=== PATIENT | male | born 1960 | race Caucasian/White ===

== ENCOUNTER 2017-06-30 14:14 | Emergency (ER) | payer OTHER ==
[2016-02-12 03:19] VITALS: BP 150/99
--- NOTE | 2017-06-30 14:18 | ED Physician Documentation ---
General Adult - HISTORIAN Historian: patient - HPI Stated Complaint: intoxicated Chief Complaint: Altered Mental Status Additional Information: alcohol ingestion Onset: hours Timing: still present Severity: moderate Modifying Factors: found intoxicated and disorderly Context: possibly fell off ladder, unwitnessed, only pt.'s wordand it changes Location: law enforcement states found in ditch - ROS CONST: no problems EYES/ENT: none CVS/RESP: none GI/: none MS/SKIN/LYMPH: none NEURO/PSYCH: other (intoxicated) - PAST HX Past History: other (unknown, uncopperative) Other History: other (unknown) Surgeries/Procedures: other (unknown, uncooperative) Immunizations: referred to PCP Allergies/Adverse Reactions: Allergies Allergy/AdvReac Type Severity Reaction Status Date / Time No Allergy Information Allergy Unverified 06/30/17 14:33 Available Home Medications: Ambulatory Orders Medication Instructions Recorded Unobtainable [Unobtainable] 06/30/17 - SOCIAL HX Smoking History: cigarettes Alcohol Use: heavy Drug Use: other (unknown) - FAMILY HX Family History: No - VITAL SIGNS Vital Signs: Vital Signs Temp Pulse Resp BP Pulse Ox 150/99 02/12/16 03:16 - REVIEWED ASSESSMENTS Nursing Assessment Reviewed: Yes Vitals Reviewed: Yes Progress - Results/Orders Results/Orders: no testing allowed by pt. - Progress Progress: no testing allowed by pt. Critical Care Note - Critical Care Note Total Time (mins): 0 ED Results Lab/Radiology - Lab Results Lab Results: pt. will not allow blood draw - Radiology Radiology Impressions: pt. will not allow radiographic testing General Adult Physical Exam - PHYSICAL EXAM GENERAL APPEARANCE: intoxicated, alert, belligerent, pt. will not allow me to touch him/examine him, walking, answers questions appropriately, abrasions on face, verbally abusive and threatening NEURO: oriented X3 Discharge Clincal Impression: Alcohol intoxication Qualifiers: Complication of substance-induced condition: uncomplicated Qualified Code(s): F10.920 - Alcohol use, unspecified with intoxication, uncomplicated Referrals: Primary Doctor,No [Primary Care Provider] - 2 Days Comments: Pt. discharged into custody of law enforcement. Condition: Stable Disposition: 01 HOME, SELF-CARE Decision to Admit: NO Decision Time: 14:18
== END 2017-06-30 14:20 | disposition home or self-care (01) ==
LOC: ED 14:14
DX: F10.920 Alcohol use, unspecified with intoxication, uncomplicated (principal)
CPT/HCPCS: 99282

== ENCOUNTER 2018-01-04 13:49 | Emergency (ER) | payer MEDICARE, OTHER ==
--- NOTE | 2018-01-04 14:07 | ED Physician Documentation ---
General Adult - HISTORIAN Historian: patient - HPI Stated Complaint: urine is "different looking" Chief Complaint: Male Urogenital Problems Onset: days ago (3) Timing: still present Severity: mild Further Comments: yes (He reports that around 3 days ago his urine started to "look different" He states that he has had a night of heavy drinking previously to this change in urine. He has had some abdominal pain in the RUQ. He states the pain "is not a big deal" and refused to answer any further questions about the abdominal pain. Denies any fever. Denies nausea and vomiting) Last known Well Code/Unknown Code: Unknown - ROS CONST: no problems EYES/ENT: none CVS/RESP: none GI/: abdominal pain, problems urinating. denies: vomiting, nausea, diarrhea MS/SKIN/LYMPH: denies: rash NEURO/PSYCH: denies: headache, dizziness - PAST HX Past History: none Surgeries/Procedures: none Immunizations: UTD Allergies/Adverse Reactions: Allergies Allergy/AdvReac Type Severity Reaction Status Date / Time No Allergy Information Allergy Verified 01/04/18 14:27 Available Home Medications: Ambulatory Orders Medication Instructions Recorded NK 01/04/18 - SOCIAL HX Smoking History: cigarettes Alcohol Use: heavy Drug Use: cocaine, methamphetamines - FAMILY HX Family History: No - VITAL SIGNS Vital Signs: Vital Signs Temp Pulse Resp BP Pulse Ox 150/99 02/12/16 03:16 - REVIEWED ASSESSMENTS Nursing Assessment Reviewed: Yes Vitals Reviewed: Yes General Adult Physical Exam - PHYSICAL EXAM GENERAL APPEARANCE: mild distress EENT: eye inspection normal, ENT inspection normal NECK: normal inspection RESPIRATORY: no resp distress, chest non-tender, breath sounds normal CVS: reg rate & rhythm, heart sounds normal, equal pulses, no murmur ABDOMEN: soft, normal bowel sounds, no distension, tenderness (RUQ ) SKIN: warm/dry, normal color EXTREMITIES: non-tender, normal range of motion, no evidence of injury, no edema NEURO: oriented X3, CN's nml as tested, motor nml, sensation nml, mood/affect nml Discharge Clincal Impression: UTI (urinary tract infection) Qualifiers: Urinary tract infection type: site unspecified Hematuria presence: with hematuria Qualified Code(s): N39.0 - Urinary tract infection, site not specified Referrals: Primary Doctor,No [Primary Care Provider] - 2 Days Disposition: 07 AGAINST MEDICAL ADVICE Decision to Admit: NO Date of Decison to Admit: 01/04/18 Decision Time: 15:40
[2018-01-04] MEDS ORDERED: 0.9 % SODIUM CHLORIDE 1,000 ML IV ONE (14:16)
[2018-01-04 14:36] LABS: BASOPHILS % 0.4 (0.0-1.5); EOSINOPHILS % 2.1 % (0.0-6.8); MEAN CORPUSCULAR HEMOGLOBIN 31.7 pg (28.0-34.0); MEAN CORPUSCULAR VOLUME 92.2 fl (80.0-100.0); NEUTROPHILS # 4.9 # k/uL (1.4-7.7)
[2018-01-04 15:01] LABS: eGFR (African) > 60; eGFR (Non-African) > 60
[2018-01-04 15:26] LABS: CANNABINOIDS NEGATIVE ng/mL (< 50); METHYLENEDIOXYMETHAMPHETAMINE NEGATIVE ng/mL (<500)
[2018-01-04 15:28] LABS: APPEARANCE,URINE CLEAR (CLEAR); COLOR,URINE RED (YELLOW); OCCULT BLOOD,URINE NEGATIVE (NEGATIVE); PH URINE 5.5 (5.0 - 8.0)
[2018-01-04 17:10] VITALS: BP 141/79
== END 2018-01-04 15:42 | disposition left against medical advice (07) ==
LOC: ED 13:49
DX: N39.0 Urinary tract infection, site not specified (principal); Z53.9 Procedure and treatment not carried out, unspecified reason
CPT/HCPCS: 80053; 81002; 82550; 85025; 85651; 87086; G0480; G0481; 80320; 80377; 99283; S1016

== ENCOUNTER 2018-06-27 17:49 | Emergency (ER) | payer OTHER ==
--- NOTE | 2018-06-27 18:10 | ED Physician Documentation ---
General Adult - PAST HX Allergies/Adverse Reactions: Allergies Allergy/AdvReac Type Severity Reaction Status Date / Time No Allergy Information Allergy Verified 01/04/18 14:27 Available Home Medications: Ambulatory Orders Medication Instructions Recorded NK 01/04/18 - VITAL SIGNS Vital Signs: Vital Signs Temp Pulse Resp BP Pulse Ox 141/79 01/04/18 13:55 ED Results Lab/Radiology - Orders Orders: ED Orders Category Date Time Status CHEST 2VIEW [RAD] Stat Exams 06/27/18 Ordered Discharge Referrals: Primary Doctor,No [Primary Care Provider] - 2 Days
[2018-06-27 18:11] VITALS: BP 154/99
== END 2018-06-27 18:13 | disposition left against medical advice (07) ==
LOC: ED 17:49
DX: Z53.29 Procedure and treatment not carried out because of patient's decision for other reasons (principal)

== ENCOUNTER 2018-06-29 15:32 | Emergency (ER) | payer OTHER ==
--- NOTE | 2018-06-29 16:15 | ED Physician Documentation ---
General Adult - HPI Stated Complaint: left rib pain Chief Complaint: General Adult Additional Information: Patient presents to ED with left posterior rib pain after falling on the ice Monday. He states the pain is so intense it is difficult for him to breathe. Onset: days ago (3) Timing: still present, worse since Severity: moderate Further Comments: no - ROS CONST: denies: fever EYES/ENT: denies: problems with vision CVS/RESP: shortness of breath GI/: denies: abdominal pain, vomiting, nausea NEURO/PSYCH: denies: headache - PAST HX Past History: none, COPD Allergies/Adverse Reactions: Allergies Allergy/AdvReac Type Severity Reaction Status Date / Time No Allergy Information Allergy Verified 01/04/18 14:27 Available Home Medications: Ambulatory Orders Medication Instructions Recorded NK 01/04/18 - SOCIAL HX Smoking History: cigarettes, greater than 1 pack/day Alcohol Use: heavy Drug Use: none - FAMILY HX Family History: No - VITAL SIGNS Vital Signs: Vital Signs Temp Pulse Resp BP Pulse Ox 154/99 06/27/18 18:13 - REVIEWED ASSESSMENTS Nursing Assessment Reviewed: Yes Vitals Reviewed: Yes Progress - Progress Progress: 1625 Patient standing at nurses station asking about alcohol rehab treatment centers. ED Results Lab/Radiology - Radiology Radiology Impressions: Patient Study Name: FELIX RESTREPO Date: Jun 29, 2018 4:12:17 PM OUTSOLE SKIVER Modality Type: DX Gender: M Description: CHEST 2VIEW : 56 Institution: [facility] Physician: HENRY WEISS Examination: PA and lateral chest. History: LEFT POSTERIOR RIB PAIN AFTER FALL TODAY Comparison exam: None provided. Findings: PA and lateral views of the chest demonstrates a normal cardiac and mediastinal silhouette. Aortic arch vascular calcifications. No focal infiltrate. No blunting of the costophrenic margins. Osseous structures are appropriate for age. Impression: No acute pulmonary process. Electronically signed on Jun 29, 2018 4:35:07 PM OUTSOLE SKIVER by: Agapito Jones - Orders Orders: ED Orders Category Date Time Status CHEST 2VIEW [RAD] Stat Exams 06/29/18 Ordered General Adult Physical Exam - PHYSICAL EXAM GENERAL APPEARANCE: no distress EENT: CHAD NECK: supple RESPIRATORY: no resp distress, chest non-tender, other (markedly diminished breath sounds bilaterally) CVS: reg rate & rhythm ABDOMEN: soft, normal bowel sounds BACK: normal inspection, no CVA tenderness SKIN: warm/dry, normal color EXTREMITIES: non-tender NEURO: oriented X3 Discharge Clincal Impression: Rib pain on left side Referrals: Primary Doctor,No [Primary Care Provider] - 2 Days Additional Instructions: 1. Ibuprofen as needed for pain 2. Apply ice/heat to affected area as needed for comfort 3. Take 3 deep breaths every hour you are awake to prevent pneumonia 4. Follow up with PCP within 1 week. 5. Return to ED for new or worsening symptoms. Condition: Stable Disposition: 01 HOME, SELF-CARE Decision to Admit: NO Date of Decison to Admit: 06/29/18 Decision Time: 16:38
[2018-06-29 16:18] VITALS: BP 155/97
[2018-06-29] MEDS ORDERED: KETOROLAC TROMETHAMINE 60 MG/2 ML VIAL IM ONE (16:27)
[2018-06-29] MEDS ORDERED: methylPREDNISolone SOD SUCC 125 MG/2 ML VIAL IM ONE (16:27)
--- NOTE | 2018-06-30 06:34 | Diagnostic Imaging Report ---
HENRY WEISS [facility] [id number] [facility] [address] [id number] Report Submission Date: Jun 29, 2018 4:35:07 PM ADMEASURER Patient Study Name: FELIX RESTREPO Date: Jun 29, 2018 4:12:17 PM ADMEASURER Modality Type: DX Gender: M Description: CHEST 2VIEW : 56 Institution: [facility] Physician: HENRY WEISS Examination: PA and lateral chest. History: LEFT POSTERIOR RIB PAIN AFTER FALL TODAY Comparison exam: None provided. Findings: PA and lateral views of the chest demonstrates a normal cardiac and mediastinal silhouette. Aortic arch vascular calcifications. No focal infiltrate. No blunting of the costophrenic margins. Osseous structures are appropriate for age. Impression: No acute pulmonary process. Electronically signed on Jun 29, 2018 4:35:07 PM ADMEASURER by: Agapito BYNUM
== END 2018-06-29 17:00 | disposition home or self-care (01) ==
LOC: ED 15:32
DX: R07.81 Pleurodynia (principal); Z72.0 Tobacco use
CPT/HCPCS: 71046; 96372; 99283; 99284; J1885; J2930